=== PATIENT | female | born 1955 | race Caucasian/White ===

== ENCOUNTER 2018-01-20 11:15 | Day surgery (SDC) | payer OTHER ==
[2018-01-16 14:02] VITALS: BMI 29.9
[~2018-01-20 11:15] MED LIST: LACTATED RINGERS 1,000 ML IV SCH
[2018-01-20 12:30] VITALS: RESP 16; TEMP 97.5
[2018-01-20] MEDS ORDERED: LIDOCAINE 1% 20 ML VIAL (10MG/ML) FOR IV START INTRADERMA ONE (12:31)
[2018-01-20] MEDS ORDERED: LIDOCAINE 1% INJ 10MG/ML (20 ML MDV) ONE (13:15)
[2018-01-20] MEDS ORDERED: PROPOFOL 10 MG/ML 20 ML VIAL IV ONE (13:15)
--- NOTE | 2018-01-20 13:54 | P.PCN ---
Date of Procedure: 01/20/18 Procedure(s) Performed: Procedure: Colonoscopy and biopsy. Preoperative diagnosis: Intermittent rectal bleeding. Postoperative diagnosis: 1. Diverticulosis of the colon with abnormal changes in the mucosa in the distal sigmoid consistent with segmental colitis or recent diverticulitis. 2. Biopsies obtained in the sigmoid. Preparation: HalfLytely prep. Sedation: Was provided by anesthesia. Brief clinical history: The patient is a 62-year-old female who is scheduled for this evaluation because of intermittent rectal bleeding that started in the month of November. No significant change in bowels. She described her bowels to be loose, 1-2 a day with no significant abdominal pains. Her last colonoscopy was in June 2012 and that showed diverticulosis with no evidence of acute diverticulitis. Procedure: With the patient on her left lateral decubitus position and after informed consent and adequate sedation, the perianal area was inspected and it did not show any fissures or fistulas. There were no masses felt on digital rectal examination. The Olympus CFQ 160L video colonoscope was then inserted in the rectum in the usual fashion and advanced to the cecum. There were multiple diverticular orifices noted, as previously described, scattered both on the left side and right side. In the distal sigmoid there was a segment of inflammation with edema, erythema and submucosal hemorrhage of the mucosa raising the possibility of a recent bout of diverticulitis or segmental colitis but there was no spontaneous bleeding. There were no obvious polyps, tumors or other potential sources of bleeding. I obtained biopsies in the sigmoid. I then retroflexed endoscope in the rectum before the endoscope was withdrawn. The patient tolerated the procedure well. Plan: The patient was reassured. Will await pathology results and make further plans based on her course and biopsy results. She will follow-up with you as planned and I will be happy to see in the office of her symptoms persist.
[2018-01-20 14:21] VITALS: BP 138/77; PULSE 78
== END 2018-01-20 14:35 | disposition home or self-care (01) ==
LOC: ORWHC2ENDO 11:15
DX: K52.9 Noninfective gastroenteritis and colitis, unspecified (principal); K50.10 Crohn's disease of large intestine without complications; K57.30 Diverticulosis of large intestine without perforation or abscess without bleeding; K21.9 Gastro-esophageal reflux disease without esophagitis; I10 Essential (primary) hypertension; E78.5 Hyperlipidemia, unspecified; I20.8 Other forms of angina pectoris; J44.9 Chronic obstructive pulmonary disease, unspecified; E07.9 Disorder of thyroid, unspecified; Z88.0 Allergy status to penicillin; Z79.890 Hormone replacement therapy; Z79.899 Other long term (current) drug therapy
CPT/HCPCS: 88305; 45380; J2001; J2704